=== PATIENT | female | born 1995 | race Caucasian/White ===

== ENCOUNTER 2016-03-30 12:20 | Emergency (ER) | payer MEDICAID | END 2016-03-30 13:10 | disposition left against medical advice (07) | DX: Z53.21 Procedure and treatment not carried out due to patient leaving prior to being seen by health care provider (principal) ==

== ENCOUNTER 2016-03-30 14:28 | Emergency (ER) | payer MEDICAID | END 2016-03-30 18:15 | disposition home or self-care (01) | DX: O26.891 Other specified pregnancy related conditions, first trimester (principal); R10.2 Pelvic and perineal pain; Z3A.01 Less than 8 weeks gestation of pregnancy ==

== ENCOUNTER 2016-04-19 07:59 | Emergency (ER) | payer MEDICAID | END 2016-04-19 09:46 | disposition home or self-care (01) | DX: R50.9 Fever, unspecified (principal); O21.0 Mild hyperemesis gravidarum; Z3A.08 8 weeks gestation of pregnancy; J45.909 Unspecified asthma, uncomplicated ==

== ENCOUNTER 2016-04-27 | Outpatient (CLI) | payer MEDICAID | END 2016-04-27 12:38 | disposition critical access hospital (66) | CPT/HCPCS: A0425; A0429 ==

== ENCOUNTER 2016-04-27 12:56 | Emergency (ER) | payer MEDICAID | END 2016-04-27 13:45 | disposition home or self-care (01) | DX: Z53.21 Procedure and treatment not carried out due to patient leaving prior to being seen by health care provider (principal); O99.89 Other specified diseases and conditions complicating pregnancy, childbirth and the puerperium; R10.9 Unspecified abdominal pain; Z3A.09 9 weeks gestation of pregnancy ==

== ENCOUNTER 2016-05-15 13:30 | Outpatient (CLI) | payer MEDICAID | END 2016-05-15 13:31 | disposition home or self-care (01) | DX: R10.0 Acute abdomen (principal) ==

== ENCOUNTER 2019-07-28 16:17 | Outpatient (CLI) | payer MEDICAID | END 2019-07-28 16:18 | disposition critical access hospital (66) | LOC: EMS 16:17 | PROVIDERS: ATTEND Surgery | DX: M54.9 Dorsalgia, unspecified (principal); W10.9XXA Fall (on) (from) unspecified stairs and steps, initial encounter | CPT/HCPCS: A0425; A0429; A0999 ==

== ENCOUNTER 2019-07-28 16:38 | Emergency (ER) | payer MEDICAID ==
[2019-07-28] MEDS ORDERED: HYDROcod/ACETAM 5/325 MG TABLET PO STA (16:43)
--- NOTE | 2019-07-28 16:45 | ED Physician Documentation ---
PD HPI BACK PAIN - Stated complaint Stated Complaint: FALL/NECK PAIN - History obtained from History obtained from: Patient (She was walking up carpeted steps in her home and slipped and fell backwards hitting her back and neck and also hurting her right knee. This was just prior to arrival. She denies loss of consciousness. She is brought in by ambulance in full C-spine precautions. She says she has no possibility of . No syncope or loss of consciousness. She has not been ambulatory since the accident.), EMS Review of Systems Ten Systems: 10 systems reviewed and negative Constitutional: reports: Reviewed and negative Throat: reports: Reviewed and negative Cardiac: reports: Reviewed and negative PD PAST MEDICAL HISTORY - Past Medical History Cardiovascular: None Respiratory: Asthma Endocrine/Autoimmune: None GI: None : None HEENT: None Psych: Depression, Anxiety Musculoskeletal: None - Past Surgical History Past Surgical History: Yes HEENT: Tonsil/Adenoidectomy - Present Medications Home Medications: Ambulatory Orders Medication Instructions Recorded Confirmed PARoxetine HCl [Paxil] 30 mg PO DAILY 12/02/15 03/05/16 Ondansetron Odt [Zofran Odt] 4 mg PO Q6H PRN 03/05/16 03/05/16 Sumatriptan Succinate [Imitrex] 50 mg PO DAILY PRN 03/05/16 03/05/16 hydrOXYzine HCL [Hydroxyzine HCl] 10 mg PO BID PRN 03/05/16 03/05/16 Pyridoxine HCl (Vitamin B6) 25 mg PO Q8H PRN #10 tablet 04/19/16 [Vitamin B-6] Hydrocodone/Acetaminophen 1 - 2 each PO Q6H PRN #14 tablet 07/28/19 [Hydrocodon-Acetaminophen 5-325] - Allergies Allergies/Adverse Reactions: Allergies Allergy/AdvReac Type Severity Reaction Status Date / Time latex Allergy Unknown Verified 07/28/19 16:53 Sulfa (Sulfonamide Allergy Unknown Verified 07/28/19 16:53 Antibiotics) - Social History Does the pt smoke?: No Smoking Status: Never smoker Does the pt drink ETOH?: No Does the pt have substance abuse?: No - Immunizations Immunizations are current?: Yes PD ED PE NORMAL - Vitals Vital signs reviewed: Yes - General General: Alert and oriented X 3, No acute distress - HEENT HEENT: PERRL, EOMI - Neck Neck: Other (Maintained in c-collar pending imaging, backboard removed during exam. She is very mild upper C-spine tenderness.) - Cardiac Cardiac: RRR, No murmur - Respiratory Respiratory: No respiratory distress, Clear bilaterally - Abdomen Abdomen: Non tender - Back Back: Other (Some diffuse tenderness of the lower T and upper L-spine) - Extremities Extremities: Other (Mild tenderness of the anterior medial right knee without effusion or limited range of motion. The patient has equal and normal Achilles and patellar reflexes bilaterally. Normal sensation in all areas of the legs. Patient denies saddle anesthesia. Normal strength in flexion-extension at the ankles, knees, and flexion of the hips.) - Neuro Neuro: Alert and oriented X 3, Normal speech Results - Vitals Vitals: Vital Signs - 24 hr 07/28/19 16:45 Temperature 37.1 C Heart Rate 79 Respiratory 20 Rate Blood Pressure 134/95 H O2 Saturation 98 Oxygen O2 Source Room air - Rads (name of study) CT C/T/L spine Radiology: EMP read contemporaneously (NAD) R knee 4v Radiology: EMP read contemporaneously (NAD) Departure - Departure Disposition: Home, Self Care Clinical Impression: Back strain Qualifiers: Encounter type: initial encounter Qualified Code(s): S39.012A - Strain of muscle, fascia and tendon of lower back, initial encounter Neck strain Qualifiers: Encounter type: initial encounter Qualified Code(s): S16.1XXA - Strain of muscle, fascia and tendon at neck level, initial encounter Condition: Good Record reviewed to determine appropriate education?: Yes Instructions: ED Sprain Strain Lumbar, ED Sprain Strain Neck Prescriptions: Hydrocodone/Acetaminophen [Hydrocodon-Acetaminophen 5-325] 1 - 2 each PO Q6H PRN #14 tablet PRN Reason: pain Comments: Call your doctor to arrange a follow-up appointment, make the next available appointment. In the interim, return anytime if worse or if new symptoms develop.
[2019-07-28 16:53] VITALS: BP 134/95
--- NOTE | 2019-07-28 17:19 | XRAY Report ---
Reason: knee inj Procedure Date: 07/28/2019 Accession Number: [id number] / [id number] Procedure: XR - Knee 4 View RT CPT Code: Final Report FULL RESULT: EXAM: RIGHT KNEE RADIOGRAPHY EXAM DATE: 07/28/2019 05:03 PM. CLINICAL HISTORY: Knee injury COMPARISON: None. TECHNIQUE: 4 views. FINDINGS: Bones: No acute fracture. No suspicious osseous lesion. Joints: No significant joint space narrowing. No dislocation. Other: None. IMPRESSION: No acute osseous abnormality. RAD[facility]
--- NOTE | 2019-07-28 17:56 | CT Report ---
Reason: neck/back inj Procedure Date: 07/28/2019 Accession Number: [id number] / [id number] Procedure: CT - THORACIC SPINE WO CPT Code: Final Report FULL RESULT: EXAM: CT THORACIC SPINE WITHOUT CONTRAST EXAM DATE: 07/28/2019 05:22 PM. CLINICAL HISTORY: Neck and back injury COMPARISONS: None. TECHNIQUE: Thin-section axial images were acquired of the thoracic spine from C7 to L1 without contrast. Post-processing: Coronal and sagittal reformats. Other: None. In accordance with CT protocol optimization, one or more of the following dose reduction techniques were utilized for this exam: automated exposure control, adjustment of mA and/or KV based on patient size, or use of iterative reconstructive technique. FINDINGS: Alignment: No evidence of dislocation. There is partial fusion of the T2 and T3 vertebral bodies, with mild focal left convex scoliosis at this level. There is no evidence of spondylolisthesis. Bones: No fracture or bone lesion. Disk Levels/Facets: C7-T1: Unremarkable. T1-T2: Unremarkable. T2-T3: Unremarkable. T3-T4: Unremarkable. T4-T5: Unremarkable. T5-T6: Unremarkable. T6-T7: Unremarkable. T7-T8: Unremarkable. T8-T9: Unremarkable. T9-T10: Unremarkable. T10-T11: Unremarkable. T11-T12: Unremarkable. T12-L1: Unremarkable. Musculature: Normal. No fatty atrophy. Other: The visualized lungs, mediastinum, and abdominal cavity are unremarkable. IMPRESSION: No evidence of thoracic spine fracture or dislocation. RAD[facility]
--- NOTE | 2019-07-28 17:57 | CT Report ---
Reason: neck/back inj Procedure Date: 07/28/2019 Accession Number: [id number] / [id number] Procedure: CT - LUMBAR SPINE WO CPT Code: Final Report FULL RESULT: EXAM: CT LUMBAR SPINE WITHOUT CONTRAST EXAM DATE: 07/28/2019 05:22 PM. CLINICAL HISTORY: Fall, back pain COMPARISONS: None. TECHNIQUE: Thin-section axial images were acquired of the lumbar spine from T12 to S1 without contrast. Post-processing: Coronal and sagittal reformats. Other: None. In accordance with CT protocol optimization, one or more of the following dose reduction techniques were utilized for this exam: automated exposure control, adjustment of mA and/or KV based on patient size, or use of iterative reconstructive technique. FINDINGS: Alignment: No scoliosis or spondylolisthesis. Bones: Five dsc-lqe-ntotmva lumbar vertebral bodies are present. No fractures or bone lesions. Disk Levels/Facets: T12-L1: Unremarkable. L1-L2: Unremarkable. L2-L3: Unremarkable. L3-L4: Unremarkable. L4-L5: Unremarkable. L5-S1: Unremarkable. Musculature: Normal. No fatty atrophy. Other: The visualized retroperitoneum demonstrates no significant abnormalities. IMPRESSION: Normal lumbar spine CT. RADIA
--- NOTE | 2019-07-28 17:58 | CT Report ---
Reason: neck/back inj Procedure Date: 07/28/2019 Accession Number: [id number] / [id number] Procedure: CT - CERVICAL SPINE WO CPT Code: Final Report FULL RESULT: EXAM: CT CERVICAL SPINE WITHOUT CONTRAST DATE: 07/28/2019 05:22 PM. HISTORY: Fell down stairs. Back pain. COMPARISONS: None. TECHNIQUE: Thin-section axial images were acquired of the cervical spine without contrast. Post-processing: Coronal and sagittal reformats. Other: None. In accordance with CT protocol optimization, one or more of the following dose reduction techniques were utilized for this exam: automated exposure control, adjustment of mA and/or KV based on patient size, or use of iterative reconstructive technique. FINDINGS: Alignment: No scoliosis or spondylolisthesis. Bones: No fracture or bone lesion. Interspace Levels/Facets: C1-C2: Unremarkable. C2-C3: Unremarkable. C3-C4: Unremarkable. C4-C5: Unremarkable. C5-C6: Unremarkable. C6-C7: Unremarkable. C7-T1: Unremarkable. Musculature: Normal. No fatty atrophy. Other: The paravertebral and prevertebral soft tissues are unremarkable. The lung apices are clear. IMPRESSION: Negative cervical spine. RADIA
== END 2019-07-28 18:22 | disposition home or self-care (01) ==
LOC: EDUNIT# → ED 16:38
DX: S39.012A Strain of muscle, fascia and tendon of lower back, initial encounter (principal); S16.1XXA Strain of muscle, fascia and tendon at neck level, initial encounter; M25.561 Pain in right knee; W10.8XXA Fall (on) (from) other stairs and steps, initial encounter; Y93.01 Activity, walking, marching and hiking; Y92.009 Unspecified place in unspecified non-institutional (private) residence as the place of occurrence of the external cause
CPT/HCPCS: 72125; 72128; 72131; 73564; 99283; 99284; A9270

== ENCOUNTER 2019-08-03 15:18 | Outpatient (CLI) | payer MEDICAID | END 2019-08-03 15:19 | disposition home or self-care (01) | LOC: COV 15:18 | PROVIDERS: ATTEND Physician Assistant | DX: Z01.812 Encounter for preprocedural laboratory examination (principal); R10.13 Epigastric pain; R11.2 Nausea with vomiting, unspecified | CPT/HCPCS: 81599 ==

== ENCOUNTER 2019-08-18 17:45 | Emergency (ER) | payer MEDICAID ==
[2019-08-18 18:08] VITALS: BP 132/84
[2019-08-18] MEDS ORDERED: MAGNESIUM CITRATE 296 ML BOTTLE PO STA (18:57)
--- NOTE | 2019-08-18 19:02 | ED Physician Documentation ---
History of Present Illness - Stated complaint Stated Complaint: CONSTIPATION - Chief complaint Chief Complaint: Abd Pain - History obtained from History obtained from: Patient - History of Present Illness Timing: How many days ago (5) Pain level max: 0 Pain level now: 0 - Additonal information Additional information: 24-year-old female presents to the emergency department with constipation for 5 days. She states she could not afford any laxatives so came here instead. No nausea. No vomiting. No fevers. No abdominal pain. 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 : None HEENT: None Psych: Depression, Anxiety Musculoskeletal: None - Past Surgical History Past Surgical History: Yes HEENT: Tonsil/Adenoidectomy - Present Medications Home Medications: Ambulatory Orders Medication Instructions Recorded Confirmed PARoxetine HCl [Paxil] 30 mg PO DAILY 12/02/15 03/05/16 Ondansetron Odt [Zofran Odt] 4 mg PO Q6H PRN 03/05/16 03/05/16 Sumatriptan Succinate [Imitrex] 50 mg PO DAILY PRN 03/05/16 03/05/16 hydrOXYzine HCL [Hydroxyzine HCl] 10 mg PO BID PRN 03/05/16 03/05/16 Pyridoxine HCl (Vitamin B6) 25 mg PO Q8H PRN #10 tablet 04/19/16 [Vitamin B-6] Hydrocodone/Acetaminophen 1 - 2 each PO Q6H PRN #14 tablet 07/28/19 [Hydrocodon-Acetaminophen 5-325] Polyethylene Glycol 3350 [Miralax] 17 gm PO DAILY PRN #1 bottle 08/18/19 - Allergies Allergies/Adverse Reactions: Allergies Allergy/AdvReac Type Severity Reaction Status Date / Time latex Allergy Unknown Verified 08/18/19 18:05 Sulfa (Sulfonamide Allergy Unknown Verified 08/18/19 18:05 Antibiotics) - Social History Does the pt smoke?: Yes Smoking Status: Current every day smoker Does the pt drink ETOH?: Yes Does the pt have substance abuse?: No - Immunizations Immunizations are current?: Yes - POLST Patient has POLST: No PD ED PE NORMAL - Vitals Vital signs reviewed: Yes - General General: Alert and oriented X 3, No acute distress - HEENT HEENT: Moist mucous membranes - Neck Neck: Supple, no meningeal sign - Cardiac Cardiac: RRR - Respiratory Respiratory: No respiratory distress, Clear bilaterally - Abdomen Abdomen: Soft, Non tender, Non distended - Derm Derm: Warm and dry - Neuro Neuro: Alert and oriented X 3 Results - Vitals Vitals: Vital Signs - 24 hr 08/18/19 18:05 Temperature 36.5 C Heart Rate 112 H Respiratory 14 Rate Blood Pressure 132/84 H O2 Saturation 97 Oxygen O2 Source Room air PD MEDICAL DECISION MAKING - ED course Complexity details: considered differential, d/w patient ED course: Patient with constipation. Given magnesium citrate. We will have her follow-up with her doctor for further care. No evidence of bowel obstruction. No fever. No vomiting. Patient counseled regarding signs and symptoms for which I believe and urgent re-evaluation would be necessary. Patient with good understanding of and agreement to plan and is comfortable going home at this time This document was made in part using voice recognition software. While efforts are made to proofread this document, sound alike and grammatical errors may occur. Departure - Departure Disposition: 01 Home, Self Care Clinical Impression: Constipation Qualifiers: Constipation type: unspecified constipation type Qualified Code(s): K59.00 - Constipation, unspecified Condition: Good Instructions: ED Constipation Follow-Up: ROSITA LITTLE DO [Primary Care Provider] - Within 1 week Prescriptions: Polyethylene Glycol 3350 [Miralax] 17 gm PO DAILY PRN #1 bottle PRN Reason: Constipation Comments: Drink plenty of water. Follow-up with your doctor for further care. Discharge Date/Time: 08/18/19 19:15
== END 2019-08-18 19:15 | disposition home or self-care (01) ==
LOC: ED 17:45
DX: K59.00 Constipation, unspecified (principal); F17.200 Nicotine dependence, unspecified, uncomplicated
CPT/HCPCS: 99282; 99284; A9270

== ENCOUNTER 2019-10-05 18:08 | Emergency (ER) | payer MEDICAID ==
--- NOTE | 2019-10-05 19:44 | ED Physician Documentation ---
History of Present Illness - Stated complaint Stated Complaint: RT SHOULDER/BACK PAIN - Chief complaint Chief Complaint: Ext Problem - History obtained from History obtained from: Patient, Family - History of Present Illness Timing: How many weeks ago (2) - Additonal information Additional information: 24-year-old female comes to the emergency department with chief complaint of right posterior shoulder back pain. Pain began about 2 weeks ago. Patient denies any falls or trauma. She reports that her aunt has been massaging the area and feels like the trapezius is swollen or tense. Pain is worse with movement. Does not increase with respirations. Patient denies any cough or fever. no dyspnea. She has full range of motion of the shoulder in all planes. For pain control she has taken 800 mg of ibuprofen and naproxen plus Tylenol. She is also used some leftover Vicodin as well as Flexeril. The only medication that helped with her pain was the Vicodin. Patient has an appointment scheduled with her primary care provider on Wednesday to address this issue. Review of Systems Constitutional: denies: Fever, Chills Cardiac: denies: Chest pain / pressure, Palpitations Respiratory: reports: Dyspnea, Cough GI: reports: Abdominal Pain. denies: Abdominal Swelling, Nausea, Vomiting Skin: denies: Rash, Lesions Musculoskeletal: reports: Back pain. 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 : None HEENT: None Psych: Depression, Anxiety Musculoskeletal: None - Past Surgical History Past Surgical History: Yes HEENT: Tonsil/Adenoidectomy - Present Medications Home Medications: Ambulatory Orders Medication Instructions Recorded Confirmed PARoxetine HCl [Paxil] 30 mg PO DAILY 12/02/15 03/05/16 Ondansetron Odt [Zofran Odt] 4 mg PO Q6H PRN 03/05/16 03/05/16 Sumatriptan Succinate [Imitrex] 50 mg PO DAILY PRN 03/05/16 03/05/16 hydrOXYzine HCL [Hydroxyzine HCl] 10 mg PO BID PRN 03/05/16 03/05/16 Pyridoxine HCl (Vitamin B6) 25 mg PO Q8H PRN #10 tablet 04/19/16 [Vitamin B-6] Hydrocodone/Acetaminophen 1 - 2 each PO Q6H PRN #14 tablet 07/28/19 [Hydrocodon-Acetaminophen 5-325] Polyethylene Glycol 3350 [Miralax] 17 gm PO DAILY PRN #1 bottle 08/18/19 methocarbamoL [Robaxin] 500 mg PO BID PRN #15 tablet 10/05/19 - Allergies Allergies/Adverse Reactions: Allergies Allergy/AdvReac Type Severity Reaction Status Date / Time latex Allergy Unknown Verified 10/05/19 18:25 Sulfa (Sulfonamide Allergy Unknown Verified 10/05/19 18:25 Antibiotics) - Social History Does the pt smoke?: Yes Smoking Status: Current every day smoker Does the pt drink ETOH?: Yes Does the pt have substance abuse?: No - Immunizations Immunizations are current?: Yes - POLST Patient has POLST: No PD ED PE NORMAL - General General: Alert and oriented X 3, No acute distress - Neck Neck: Supple, no meningeal sign, No bony TTP, No adenopathy - Cardiac Cardiac: RRR, No murmur - Respiratory Respiratory: No respiratory distress, Clear bilaterally - Back Back: No CVA TTP, No spinal TTP, Other (Full range of motion of both shoulders in all planes. Negative for impingement. Mild tenderness noted with deep palpation of the right trapezius medial to the scapula. Subtle swelling is noted but no erythema.) - Derm Derm: Normal color, Warm and dry, No rash - Extremities Extremities: No deformity Results - Vitals Vitals: Vital Signs - 24 hr 10/05/19 10/05/19 18:20 19:38 Temperature 36.4 C L Heart Rate 96 Respiratory 16 16 Rate Blood Pressure 124/76 O2 Saturation 99 Oxygen O2 Source Room air PD MEDICAL DECISION MAKING - ED course Complexity details: reviewed results, d/w patient, d/w family ED course: 24 year-old female here with 2 weeks of left posterior back trapezius pain. No history of falls or trauma. will defer imaging - On exam she has mild swelling and tenderness in the body of the trapezius. She has no fevers or erythema. My suspicion for infection or localized abscess is extremely low. The exam of her shoulder is normal with no findings of impingement. - We discussed proper [id number] NSAID and Tylenol use. She appears to be overusing at this time. I will recommend a short course of a muscle relaxer Robaxin. She is good to see her primary care doctor on Wednesday. I have advised that she should be referred for physical therapy. - Departure - Departure Disposition: Home, Self Care Clinical Impression: Strain of left trapezius muscle Qualifiers: Encounter type: initial encounter Qualified Code(s): S46.812A - Strain of other muscles, fascia and tendons at shoulder and upper arm level, left arm, initial encounter Condition: Stable Instructions: ED Spasm Back No Trauma Follow-Up: ROSITA LITTLE DO [Primary Care Provider] - Prescriptions: methocarbamoL [Robaxin] 500 mg PO BID PRN #15 tablet PRN Reason: Spasms Comments: I think you have a strained trapezius muscle. Please place a warm compress on it 2-3 times a day to help with inflammation. I have prescribed a little bit of Robaxin to be used as a muscle relaxer. Do not drive if taking this medication. Please avoid overuse of [id number] pain medications in combination such as ibuprofen and naproxen. You are at risk of damaging your kidneys by doing this. Please return to the emergency department if your pain is worsening, you have fevers, cannot breathe normally or have any concerns of infection
[2019-10-05 19:55] VITALS: BP 123/78
== END 2019-10-05 19:57 | disposition home or self-care (01) ==
LOC: ED 18:08
DX: S46.812A Strain of other muscles, fascia and tendons at shoulder and upper arm level, left arm, initial encounter (principal); X58.XXXA Exposure to other specified factors, initial encounter; F17.200 Nicotine dependence, unspecified, uncomplicated
CPT/HCPCS: 99282; 99283

== ENCOUNTER 2019-10-07 19:42 | Outpatient (CLI) | payer MEDICAID | END 2019-10-07 23:59 | disposition short-term general hospital (02) | LOC: EMS 19:42 | PROVIDERS: ATTEND Surgery | DX: R05 Cough (principal); R06.9 Unspecified abnormalities of breathing | CPT/HCPCS: A0425; A0429 ==

== ENCOUNTER 2019-10-24 19:08 | Emergency (ER) | payer MEDICAID ==
[2019-10-24 19:38] LABS: BILIRUBIN,URINE NEGATIVE (NEGATIVE); GLUCOSE, URINE (UA) NEGATIVE (NEGATIVE); KETONES,URINE (UA) NEGATIVE (NEGATIVE); LEUKOCYTE ESTERASE, URINE NEGATIVE (NEGATIVE); NITRITE,URINE NEGATIVE (NEGATIVE); OCCULT BLOOD,URINE NEGATIVE (NEGATIVE); PROTEIN,URINE NEGATIVE (NEGATIVE); UROBILINOGEN,URINE 0.2 (NORMAL) E.U./dL (NORMAL)
--- NOTE | 2019-10-24 19:42 | ED Physician Documentation ---
History of Present Illness - Stated complaint Stated Complaint: PAIN BACK - Chief complaint Chief Complaint: Back Pain - History obtained from History obtained from: Patient - History of Present Illness Timing: How many days ago (2) - Additonal information Additional information: 24-year-old female presents the emergency department for evaluation of left low sided back pain as well as new onset urinary urgency and frequency. She was seen in this ER yesterday for left sided back pain without any sciatica component. She has been taking the medications as prescribed since discharge but does not feel like the pain has improved. She denies any saddle anesthesia or fevers. However today she is gone to the bathroom approximately 12 times. Each time she does not feel like she fully empties her bladder Past medical history is most significant for anxiety/depression as well as IBS that is complicated by recurrent constipation for which she takes MiraLAX and lactulose She has had no falls or trauma recently. In the room she appears very well and alert. She has a normal non-antalgic gait Review of Systems Constitutional: denies: Fever, Chills Cardiac: denies: Chest pain / pressure, Palpitations Respiratory: denies: Dyspnea GI: denies: Abdominal Pain, Nausea, Vomiting : reports: Frequency, Hesitancy. denies: Dysuria Skin: denies: Rash, Lesions Musculoskeletal: reports: Back pain. 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 : None HEENT: None Psych: Depression, Anxiety Musculoskeletal: None - Past Surgical History Past Surgical History: Yes HEENT: Tonsil/Adenoidectomy - Present Medications Home Medications: Ambulatory Orders Medication Instructions Recorded Confirmed Ondansetron Odt [Zofran Odt] 4 mg PO Q6H PRN 03/05/16 10/22/19 Dicyclomine [Bentyl] 10/22/19 Lactulose 10/22/19 Lamotrigine [Lamictal (Green)] 10/22/19 OLANZapine [Zyprexa] 10/22/19 Pantoprazole [Protonix] 10/22/19 busPIRone [Buspar] 10/22/19 cloNIDine [Clonidine] 10/22/19 Cyclobenzaprine [Flexeril] 10 mg PO TID PRN #6 tablet 10/23/19 Cephalexin [Keflex] 500 mg PO BID #10 capsule 10/24/19 Naproxen Sodium [Naprelan] 375 mg PO BID PRN #10 tbmp.24hr 10/24/19 - Allergies Allergies/Adverse Reactions: Allergies Allergy/AdvReac Type Severity Reaction Status Date / Time latex Allergy Unknown Verified 10/24/19 19:14 Sulfa (Sulfonamide Allergy Unknown Verified 10/24/19 19:14 Antibiotics) - Social History Does the pt smoke?: Yes Smoking Status: Current every day smoker Does the pt drink ETOH?: Yes Does the pt have substance abuse?: No - Immunizations Immunizations are current?: Yes - POLST Patient has POLST: No PD ED PE NORMAL - General General: Alert and oriented X 3, No acute distress, Well developed/nourished - HEENT HEENT: PERRL, EOMI - Cardiac Cardiac: RRR, No murmur - Respiratory Respiratory: No respiratory distress - Abdomen Abdomen: Normal bowel sounds, Soft, Non tender - Back Back: No CVA TTP, No spinal TTP, Other (Full range of motion of lower lumbar spine. Mild left paraspinous tenderness. No midline spinous process tenderness. No crepitus no step-off. Normal gait. Motor strength 5 of 5 bilateral lower extremities. 2+ patellar reflexes bilaterally) - Derm Derm: Normal color, Warm and dry - Extremities Extremities: No deformity, No tenderness to palpate, Normal ROM s pain - Neuro Neuro: Alert and oriented X 3, numerologist 2-12 intact, No motor deficit Eye Opening: Spontaneous Motor: Obeys Commands Verbal: Oriented GCS Score: 15 - Psych Psych: Normal mood Results - Vitals Vitals: Vital Signs - 24 hr 10/24/19 19:14 Temperature 36.8 C Heart Rate 100 Respiratory 16 Rate Blood Pressure 130/83 H O2 Saturation 98 Oxygen O2 Source Room air - Labs Labs: Laboratory Tests 10/24/19 10/24/19 19:19 19:19 Urine Color YELLOW Urine Clarity CLEAR Urine pH 6.0 Ur Specific [place] <=1.005 <=1.005 Urine Protein NEGATIVE Urine Glucose (UA) NEGATIVE Urine Ketones NEGATIVE Urine Occult Blood NEGATIVE Urine Nitrite NEGATIVE Urine Bilirubin NEGATIVE Urine Urobilinogen 0.2 (NORMAL) Ur Leukocyte Esterase NEGATIVE Ur Microscopic Review NOT INDICATED Urine Culture Comments NOT INDICATED Urine HCG, Qual NEGATIVE PD MEDICAL DECISION MAKING - ED course Complexity details: reviewed results, d/w patient, d/w family ED course: 24-year-old female presents to the emergency department with chief complaint of left low back pain and increasing urinary urgency and frequency. - She has no back pain red flags. No fevers or saddle anesthesia. In fact her back exam was relatively benign she has a normal gait and I did not elicit any midline spinous process tenderness. - The newer onset urinary urgency and frequency is most worrisome for urinary tract infection. However her urine UA is relatively unremarkable. No LE, no nitrates no bacteria. The urine does appear dilute which may minimize her ability to adequately interpret the urine. However given her symptoms I will plan to discharge her with a prescription for Keflex to be taken twice a day for 5 days. We will also recommend NSAID medication such as naproxen. Though she does not have a history of recurrent UTI or interstitial cystitis and anti- inflammatory medication may improve her symptoms. No fevers flank pain or chills my suspicion for Rony is exceedingly low. Emergent return precautions discussed Departure - Departure Disposition: 01 Home, Self Care Clinical Impression: Urinary frequency Low back pain Qualifiers: Chronicity: acute Back pain laterality: left Sciatica presence: without sciatica Qualified Code(s): M54.5 - Low back pain Condition: Stable Instructions: ED UTI Cystitis Female Follow-Up: ROSITA LITTLE DO [Primary Care Provider] - Prescriptions: Cephalexin [Keflex] 500 mg PO BID #10 capsule Naproxen Sodium [Naprelan] 375 mg PO BID PRN #10 tbmp.24hr PRN Reason: Pain Comments: The increased urinary frequency and urgency is often a sign of a urinary tract infection. However your urine looks normal today but this does not mean that you do not have a very early infection causing your symptoms. I have given you your first dose of Keflex here in the emergency department and have prescribed a 5-day course of an antibiotic for you to take twice a day. If this is a simple urinary tract infection I would expect your symptoms to be improving over the next 48 hours. If not improving, you have fevers flank pain or uncontrolled vomiting please return to the emergency department
[2019-10-24 19:45] LABS: CLARITY,URINE CLEAR (CLEAR)
[2019-10-24 19:53] LABS: HCG UR QUAL NEGATIVE
[2019-10-24] MEDS ORDERED: cephALEXin 250 MG CAPSULE PO STA (20:15)
[2019-10-24 21:12] VITALS: BP 127/78
== END 2019-10-24 21:00 | disposition home or self-care (01) ==
LOC: ED 19:08
DX: R35.0 Frequency of micturition (principal); R39.15 Urgency of urination; M54.5 Low back pain; F17.200 Nicotine dependence, unspecified, uncomplicated
CPT/HCPCS: 81003; 81025; 99283; 99284; A9270; 81001; 87086

== ENCOUNTER 2019-12-05 18:42 | Outpatient (CLI) | payer MEDICAID | END 2019-12-05 18:43 | disposition critical access hospital (66) | LOC: EMS 18:42 | PROVIDERS: ATTEND Surgery | DX: R55 Syncope and collapse (principal); R42 Dizziness and giddiness; S09.90XA Unspecified injury of head, initial encounter; W18.39XA Other fall on same level, initial encounter; Y92.511 Restaurant or cafe as the place of occurrence of the external cause | CPT/HCPCS: A0425; A0427 ==

== ENCOUNTER 2019-12-05 18:59 | Emergency (ER) | payer MEDICAID ==
--- NOTE | 2019-12-05 19:07 | ED Physician Documentation ---
PD HPI SYNCOPE - Stated complaint Stated Complaint: SYNCOPE - Chief complaint Chief Complaint: General - History obtained from History obtained from: Patient - History of Present Illness Witnessed: Unwitnessed (She was at work and stood up after going to the bathroom and felt lightheaded and then awoke on the floor. Coworkers heard her fall and came in to find her promptly and she was awake within several seconds. She did appear pale. EMS was called and noted her initial blood pressure little bit low.) Timing - onset: Today Duration: Seconds Preceding symptoms: Nausea / vomiting (The patient states she has chronic diarrhea from 1 of her medications but in the last several days has noticed a reddish-brown coloring to it with more watery component than usual. She has had nausea as well. She did have a feeling of general weakness. No abdominal pain.), Light headed, Generalized weakness Associated symptoms: No: Seizure, Incontinant of urine Contributing factors: Decreased PO intake (She has had nausea over the last several days with some decreased oral intake. She is also had some increased diarrhea with some reddish color over the last few days.). No: Recent med change Injury occurred: Head injury (contusion forehead but no headache, confusion, altered mentation once awakened.) Review of Systems Constitutional: denies: Fever, Chills Nose: denies: Rhinorrhea / runny nose, Congestion Throat: denies: Sore throat Respiratory: denies: Cough GI: reports: Nausea, Diarrhea (somewhat chronic but with increase the past 4-5 days, improving toward baseline softness today.). denies: Abdominal Pain, Abdominal Swelling, Vomiting, Constipation : denies: Dysuria Skin: denies: Abrasion (s), Laceration (s) Neurologic: reports: Generalized weakness, Syncope. 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 : None HEENT: None Psych: Depression, Anxiety Musculoskeletal: None - Past Surgical History Past Surgical History: Yes HEENT: Tonsil/Adenoidectomy - Present Medications Home Medications: Ambulatory Orders Medication Instructions Recorded Confirmed Ondansetron Odt [Zofran Odt] 4 mg PO Q6H PRN 12/15/16 08/02/20 Dicyclomine [Bentyl] 10/22/19 Lactulose 10/22/19 Lamotrigine [Lamictal (Green)] 10/22/19 OLANZapine [Zyprexa] 10/22/19 Pantoprazole [Protonix] 10/22/19 busPIRone [Buspar] 10/22/19 cloNIDine [Clonidine] 10/22/19 Cyclobenzaprine [Flexeril] 10 mg PO TID PRN #6 tablet 10/23/19 Cephalexin [Keflex] 500 mg PO BID #10 capsule 10/24/19 Naproxen Sodium [Naprelan] 375 mg PO BID PRN #10 tbmp.24hr 10/24/19 metroNIDAZOLE [Flagyl] 500 mg PO BID #10 tablet 12/05/19 - Allergies Allergies/Adverse Reactions: Allergies Allergy/AdvReac Type Severity Reaction Status Date / Time latex Allergy Unknown Verified 12/05/19 19:05 Sulfa (Sulfonamide Allergy Unknown Verified 12/05/19 19:05 Antibiotics) - Social History Does the pt smoke?: Yes Smoking Status: Current every day smoker Does the pt drink ETOH?: Yes Does the pt have substance abuse?: No - Immunizations Immunizations are current?: Yes - POLST Patient has POLST: No PD ED PE NORMAL - Vitals Vital signs reviewed: Yes - General General: Alert and oriented X 3, No acute distress, Well developed/nourished - HEENT HEENT: Pharynx benign, Other (forehead contusion with minimal tenderness. ) - Neck Neck: Supple, no meningeal sign, No adenopathy - Cardiac Cardiac: RRR, No murmur - Respiratory Respiratory: Clear bilaterally - Abdomen Abdomen: Normal bowel sounds, Soft, Non tender, Non distended - Rectal Rectal: Deferred - Back Back: No CVA TTP - Derm Derm: Normal color, Warm and dry - Extremities Extremities: No edema, No calf tenderness / cord - Neuro Neuro: Alert and oriented X 3, No motor deficit, No sensory deficit, Normal speech Eye Opening: Spontaneous Motor: Obeys Commands Verbal: Oriented GCS Score: 15 - Psych Psych: Normal mood, Normal affect Results - Vitals Vitals: Vital Signs - 24 hr 12/05/19 12/05/19 12/05/19 19:01 19:22 20:41 Temperature 36.6 C 37.1 C Heart Rate 84 90 Respiratory 100 H 16 18 Rate Blood Pressure 137/97 H 138/85 H O2 Saturation 98 12/05/19 20:42 Temperature Heart Rate Respiratory 16 Rate Blood Pressure O2 Saturation Oxygen O2 Source Room air - Labs Labs: Laboratory Tests 12/05/19 12/05/19 12/05/19 19:23 19:23 19:33 WBC 9.4 RBC 4.93 Hgb 13.0 Hct 40.6 MCV 82.4 MCH 26.4 L MCHC 32.0 RDW 13.3 Plt Count 234 MPV 11.2 H Neut # (Auto) 6.2 Lymph # (Auto) 2.4 Lake # (Auto) 0.8 Eos # (Auto) 0.0 Baso # (Auto) 0.1 Absolute Nucleated RBC 0.00 Nucleated RBC % 0.0 Sodium Potassium Chloride Carbon Dioxide Anion Gap BUN Creatinine Estimated GFR (MDRD) Glucose Calcium Total Bilirubin AST ALT Alkaline Phosphatase Total Protein Albumin Globulin Albumin/Globulin Ratio Lipase Urine Color YELLOW Urine Clarity CLEAR Urine pH 5.5 Ur Specific [place] 1.020 1.020 Urine Protein NEGATIVE Urine Glucose (UA) NEGATIVE Urine Ketones NEGATIVE Urine Occult Blood NEGATIVE Urine Nitrite NEGATIVE Urine Bilirubin NEGATIVE Urine Urobilinogen 0.2 (NORMAL) Ur Leukocyte Esterase NEGATIVE Ur Microscopic Review NOT INDICATED Urine Culture Comments NOT INDICATED Urine HCG, Qual NEGATIVE 12/05/19 19:33 WBC RBC Hgb Hct MCV MCH MCHC RDW Plt Count MPV Neut # (Auto) Lymph # (Auto) [place] # (Auto) Eos # (Auto) Baso # (Auto) Absolute Nucleated RBC Nucleated RBC % Sodium 139 Potassium 4.0 Chloride 108 Carbon Dioxide 21 Anion Gap 10.0 BUN 11 Creatinine 0.6 Estimated GFR (MDRD) 122 Glucose 93 Calcium 8.7 Total Bilirubin 0.5 AST 19 ALT 24 Alkaline Phosphatase 96 Total Protein 6.7 Albumin 4.2 Globulin 2.5 Albumin/Globulin Ratio 1.7 Lipase 20 L Urine Color Urine Clarity Urine pH Ur Specific [place] Urine Protein Urine Glucose (UA) Urine Ketones Urine Occult Blood Urine Nitrite Urine Bilirubin Urine Urobilinogen Ur Leukocyte Esterase Ur Microscopic Review Urine Culture Comments Urine HCG, Qual PD MEDICAL DECISION MAKING - ED course Complexity details: reviewed results (She does report some reddish to dark stools for several days. Her blood count is normal. She does typically have soft stool due to her medication from constipation. She does not have pain fever or white count to suggest obvious colitis but consider infectious colitis. Doubt c.diff.), considered differential (Seems postural syncope after going to the bathroom brought on by recent decreased oral intake with nausea and incr eased fluid loss from increased diarrhea over baseline.), d/w patient Departure - Departure Disposition: 01 Home, Self Care Clinical Impression: Bloody diarrhea Episode of syncope Qualifiers: Syncope type: unspecified Qualified Code(s): R55 - Syncope and collapse Condition: Stable Record reviewed to determine appropriate education?: Yes Instructions: ED Syncope Vasovagal Follow-Up: Maxwell Doe SR, MD [Primary Care Provider] - Prescriptions: metroNIDAZOLE [Flagyl] 500 mg PO BID #10 tablet Comments: Off work tomorrow and then resume work on . Nausea medicine if needed. Stay well-hydrated. If your blood in the diarrhea does not improve in the next day or so, then add the antibiotic as directed and see if that helps. It may be some infectious component to the diarrhea that is causing some bleeding. You could add some probiotics as well. Your blood count and EKG and heart rhythm are normal here. Recheck if persistently lightheaded or weakness continues. Forms: Activity restrictions
[2019-12-05] MEDS ORDERED: SODIUM CHLORIDE 0.9% 1,000 ML IV STA (19:20)
[2019-12-05] MEDS ORDERED: ONDANSETRON 4 MG/2 ML VIAL IVP STA (19:20)
[2019-12-05 19:33] LABS: BILIRUBIN,URINE NEGATIVE (NEGATIVE); GLUCOSE, URINE (UA) NEGATIVE (NEGATIVE); KETONES,URINE (UA) NEGATIVE (NEGATIVE); LEUKOCYTE ESTERASE, URINE NEGATIVE (NEGATIVE); NITRITE,URINE NEGATIVE (NEGATIVE); OCCULT BLOOD,URINE NEGATIVE (NEGATIVE); PH,URINE 5.5 PH (5.0-7.5); PROTEIN,URINE NEGATIVE (NEGATIVE); UROBILINOGEN,URINE 0.2 (NORMAL) E.U./dL (NORMAL)
[2019-12-05 19:35] LABS: CLARITY,URINE CLEAR (CLEAR)
[2019-12-05 19:39] LABS: BASOPHILS # (AUTO) 0.1 10^3/uL (0.0-0.1); BASOPHILS % (AUTO) 0.5 %; LYMPHOCYTES # (AUTO) 2.4 10^3/uL (1.5-3.5); LYMPHOCYTES % (AUTO) 25.3 %; MEAN CORPUSCULAR HEMOGLOBIN 26.4 pg (27.0-31.0); MEAN CORPUSCULAR VOLUME 82.4 fL (81.0-99.0); MEAN PLATELET VOLUME 11.2 fL (7.9-10.8); MONOCYTES # (AUTO) 0.8 10^3/uL (0.0-1.0); NEUTROPHILS # (AUTO) 6.2 10^3/uL (1.5-6.6); NEUTROPHILS % (AUTO) 65.7 %; PLT - PLATELET COUNT 234 10^3/uL (130-450); RED BLOOD COUNT 4.93 10^6/uL (4.20-5.40); RED CELL DISTRIBUTION WIDTH 13.3 % (12.0-15.0); WHITE BLOOD COUNT 9.4 x10^3/uL (4.8-10.8)
[2019-12-05 19:52] LABS: ALBUMIN 4.2 g/dL (3.2-5.5); ALBUMIN/GLOBULIN RATIO 1.7 (1.0-2.2); BILIRUBIN,TOTAL 0.5 mg/dL (0.2-1.0); CALCIUM 8.7 mg/dL (8.5-10.3); CREATININE 0.6 mg/dL (0.4-1.0); TOTAL PROTEIN 6.7 g/dL (6.7-8.2)
[2019-12-05 20:35] LABS: HCG UR QUAL NEGATIVE
[2019-12-05 20:49] VITALS: BP 138/85
== END 2019-12-05 20:50 | disposition home or self-care (01) ==
LOC: EDUNIT# → ED 18:59
DX: K92.1 Melena (principal); R55 Syncope and collapse; F17.200 Nicotine dependence, unspecified, uncomplicated
CPT/HCPCS: 36415; 80053; 81001; 81003; 81025; 83690; 85025; 87086; 93005; 96361; 96374; 99284

== ENCOUNTER 2019-12-06 23:04 | Outpatient (CLI) | payer MEDICAID | END 2019-12-06 23:05 | disposition critical access hospital (66) | LOC: EMS 23:04 | PROVIDERS: ATTEND Surgery | DX: R45.851 Suicidal ideations (principal) | CPT/HCPCS: A0425; A0429; A0999 ==

== ENCOUNTER 2019-12-06 23:21 | Emergency (ER) | payer MEDICAID ==
[2019-12-07 00:56] LABS: MUDS CUTOFF CONCENTRATIONS CUTOFF CONC BELOW:
[2019-12-07 01:00] LABS: BILIRUBIN,URINE NEGATIVE (NEGATIVE); GLUCOSE, URINE (UA) NEGATIVE (NEGATIVE); KETONES,URINE (UA) NEGATIVE (NEGATIVE); LEUKOCYTE ESTERASE, URINE NEGATIVE (NEGATIVE); NITRITE,URINE NEGATIVE (NEGATIVE); OCCULT BLOOD,URINE NEGATIVE (NEGATIVE); PH,URINE 6.5 PH (5.0-7.5); PROTEIN,URINE NEGATIVE (NEGATIVE); UROBILINOGEN,URINE 0.2 (NORMAL) E.U./dL (NORMAL)
[2019-12-07 01:04] LABS: CLARITY,URINE CLEAR (CLEAR)
[2019-12-07 01:10] LABS: AMPHETAMINE SCREEN,URINE NEGATIVE (NEGATIVE); BENZODIAZEPINES SCREEN, URINE NEGATIVE (NEGATIVE); COCAINE SCREEN URINE NEGATIVE (NEGATIVE); METHADONE SCREEN, URINE NEGATIVE (NEGATIVE); METHAMPHETAMINES SCREEN, URINE NEGATIVE (NEGATIVE); OPIATE SCREEN, URINE NEGATIVE (NEGATIVE); OXYCODONE SCREEN, URINE NEGATIVE (NEGATIVE); PROPOXYPHENE SCREEN, URINE NEGATIVE (NEGATIVE); TRICYCLIC ANTIDEPRESSANT,URINE POSITIVE (NEGATIVE)
[2019-12-07 01:16] LABS: BASOPHILS # (AUTO) 0.1 10^3/uL (0.0-0.1); BASOPHILS % (AUTO) 0.5 %; HGB - HEMOGLOBIN 13.2 g/dL (12.0-16.0); LYMPHOCYTES # (AUTO) 3.6 10^3/uL (1.5-3.5); LYMPHOCYTES % (AUTO) 26.8 %; MEAN CORPUSCULAR HEMOGLOBIN 26.2 pg (27.0-31.0); MEAN CORPUSCULAR HGB CONC 32.7 g/dL (32.0-36.0); MEAN CORPUSCULAR VOLUME 80.3 fL (81.0-99.0); MEAN PLATELET VOLUME 11.3 fL (7.9-10.8); MONOCYTES # (AUTO) 1.1 10^3/uL (0.0-1.0); MONOCYTES % (AUTO) 8.2 %; NEUTROPHILS # (AUTO) 8.6 10^3/uL (1.5-6.6); PLT - PLATELET COUNT 264 10^3/uL (130-450); RED BLOOD COUNT 5.03 10^6/uL (4.20-5.40); RED CELL DISTRIBUTION WIDTH 13.2 % (12.0-15.0); WHITE BLOOD COUNT 13.5 x10^3/uL (4.8-10.8)
[2019-12-07 01:31] LABS: ACETAMINOPHEN < 10 ug/mL (10-30); ALBUMIN 4.3 g/dL (3.2-5.5); ALBUMIN/GLOBULIN RATIO 1.5 (1.0-2.2); ALKALINE PHOSPHATASE 96 IU/L (42-121); ALT ALANINE AMINOTRANSFERASE 23 IU/L (10-60); AST ASPARTATE AMINOTRANSFERASE 17 IU/L (10-42); BILIRUBIN,TOTAL 0.4 mg/dL (0.2-1.0); BUN - BLOOD UREA NITROGEN 15 mg/dL (6-20); CALCIUM 9.8 mg/dL (8.5-10.3); CARBON DIOXIDE - CO2 23 mmol/L (21-32); CHLORIDE 106 mmol/L (101-111); CREATININE 0.7 mg/dL (0.4-1.0); GLUCOSE 97 mg/dL (70-100); LIPASE 28 U/L (22-51); SALICYLATE < 6.0 mg/dL; SODIUM 137 mmol/L (135-145); TOTAL PROTEIN 7.2 g/dL (6.7-8.2)
--- NOTE | 2019-12-07 05:13 | ED Physician Documentation ---
PD HPI MHE - Stated complaint Stated Complaint: SI - Chief complaint Chief Complaint: MHE - History obtained from History obtained from: Patient, EMS - History of Present Illness Primary symptom: Suicidal ideation Timing - onset: Today Contributing factors: Family Similar symptoms before: Diagnosis (depression with SI) Recently seen: Emergency Dept - Additional information Additional information: 24-year-old female who was seen in the emergency department yesterday for bloody diarrhea has had some improvement in her diarrhea. This evening she was at home and she went to go dye her hair in the bathroom. She had permission from her aunt to do this and she ended up making a mess on the floor in the bathroom. When the patient came in to discussed this with the aunt the aunt became angry with the patient and the patient eventually made a suicidal statement indicating she would injure herself. The aunt insisted the patient call 911 to go to the hospital. The patient did call 911 and when the commander police reserves arrived he did get the patient to make a statement regarding how she would kill herself if she tried and she indicated that she would cut herself, "like I always do" as a means to commit suicide. The patient is recently been released from longterm for violating a no contact order. She indicates she spent 41 months in longterm for violating a no contact order 5 times. She is now living with her aunt and uncle and a cousin in [place]. She does not feel the living situation is working out. She denies SI now. She has a past history of numerous prior cuttings. She did not cut on her self this evening. Review of Systems Constitutional: denies: Fever Eyes: denies: Decreased vision Ears: denies: Ear pain Nose: denies: Rhinorrhea / runny nose, Congestion Throat: denies: Sore throat Cardiac: denies: Chest pain / pressure, Palpitations Respiratory: denies: Dyspnea, Cough GI: reports: Diarrhea, Bloody / black stool. 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 : None HEENT: None Psych: Depression, Anxiety Musculoskeletal: None - Past Surgical History Past Surgical History: Yes HEENT: Tonsil/Adenoidectomy - Present Medications Home Medications: Ambulatory Orders Medication Instructions Recorded Confirmed Dicyclomine [Bentyl] 10 mg PO BID 10/22/19 12/07/19 Lamotrigine [Lamictal (Green)] 100 mg PO DAILY 10/22/19 12/07/19 OLANZapine [Zyprexa] 20 mg PO QPM 10/22/19 12/07/19 Pantoprazole [Protonix] 40 mg PO DAILY 10/22/19 12/07/19 busPIRone [Buspar] 10 mg PO BID 10/22/19 12/07/19 cloNIDine [Clonidine] 0.2 mg PO DAILY 10/22/19 12/07/19 Acyclovir [Zovirax] 400 mg PO BID 12/06/19 12/06/19 Amitriptyline [Elavil] 25 mg PO QPM 12/06/19 12/06/19 Docusate Sodium 250Mg Capsule 250 mg PO BID 12/06/19 12/06/19 [Colace 250Mg Capsule] Linaclotide [Linzess] 145 mcg PO DAILY 12/06/19 12/07/19 - Allergies Allergies/Adverse Reactions: Allergies Allergy/AdvReac Type Severity Reaction Status Date / Time latex Allergy Unknown Verified 12/06/19 23:37 Sulfa (Sulfonamide Allergy Unknown Verified 12/06/19 23:37 Antibiotics) - Social History Does the pt smoke?: Yes Smoking Status: Current every day smoker Does the pt drink ETOH?: Yes Does the pt have substance abuse?: No - Immunizations Immunizations are current?: Yes - POLST Patient has POLST: No PD ED PE NORMAL - Vitals Vital signs reviewed: Yes (tachy and hypertensive ) - General General: Alert and oriented X 3, No acute distress, Well developed/nourished - HEENT HEENT: Atraumatic, PERRL, EOMI, Other (freshly dyed hair bright red) - Neck Neck: Supple, no meningeal sign, No bony TTP - Cardiac Cardiac: RRR, No murmur - Respiratory Respiratory: No respiratory distress, Clear bilaterally - Abdomen Abdomen: Normal bowel sounds, Soft, Non tender, Non distended, No organomegaly - Back Back: No CVA TTP, No spinal TTP - Derm Derm: Normal color, Warm and dry, No rash - Extremities Extremities: No deformity, No edema, Other (There are multiple hesitation singh on the left forearm all well-healed and there are no new or recent scratches) - Neuro Neuro: Alert and oriented X 3, director of 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/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7 RDW 13.2 Plt Count 264 MPV 11.3 H Neut # (Auto) 8.6 H Lymph # (Auto) 3.6 H [place] # (Auto) 1.1 H Eos # (Auto) 0.0 Baso # (Auto) 0.1 Absolute Nucleated RBC 0.00 Nucleated RBC % 0.0 Sodium 137 Potassium 4.0 Chloride 106 Carbon Dioxide 23 Anion Gap 8.0 BUN 15 Creatinine 0.7 Estimated GFR (MDRD) 102 Glucose 97 Calcium 9.8 Total Bilirubin 0.4 AST 17 ALT 23 Alkaline Phosphatase 96 Total Protein 7.2 Albumin 4.3 Globulin 2.9 Albumin/Globulin Ratio 1.5 Lipase 28 Urine Color YELLOW Urine Clarity CLEAR Urine pH 6.5 Ur Specific [place] 1.025 Urine Protein NEGATIVE Urine Glucose (UA) NEGATIVE Urine Ketones NEGATIVE Urine Occult Blood NEGATIVE Urine Nitrite NEGATIVE Urine Bilirubin NEGATIVE Urine Urobilinogen 0.2 (NORMAL) Ur Leukocyte Esterase NEGATIVE Ur Microscopic Review NOT INDICATED Urine Culture Comments NOT INDICATED Salicylates < 6.0 Urine Opiates Screen NEGATIVE Ur Oxycodone Screen NEGATIVE Urine Methadone Screen NEGATIVE Ur Propoxyphene Screen NEGATIVE Acetaminophen < 10 L Ur Barbiturates Screen NEGATIVE Ur Tricyclics Screen POSITIVE H Ur Phencyclidine Scrn NEGATIVE Ur Amphetamine Screen NEGATIVE U Methamphetamines Scrn NEGATIVE U Benzodiazepines Scrn NEGATIVE Urine Cocaine Screen NEGATIVE U Cannabinoids Screen NEGATIVE Ethyl Alcohol < 5.0 PD MEDICAL DECISION MAKING - ED course Complexity details: reviewed results, re-evaluated patient, considered differential, d/w patient ED course: 24-year-old female making remarks indicating suicidal ideation no longer feels suicidal here in the emergency department. She has had a number of previous attempts at cutting she has had a prior drug overdose and I have asked the patient to wait for evaluation by the family welfare social work professor in the morning. She is now medically cleared for evaluation. At shift change her care is turned over to Dr. Sams.
--- NOTE | 2019-12-07 12:18 | ED Physician Documentation ---
ED Addendum - Addendum Addendum: 12/07/19 12:16 24-year-old female signed out by Dr. Graham awaiting social work evaluation. Patient denies feeling homicidal or suicidal. She does not plan to hurt herself. She spoke with social work and they developed a safety plan. She is comfortable going home at this time. She has resources to follow-up with. Patient counseled regarding signs and symptoms for which I believe and urgent re-evaluation would be necessary. Patient with good understanding of and agreement to plan and is comfortable going home at this time This document was made in part using voice recognition software. While efforts are made to proofread this document, sound alike and grammatical errors may occur. Departure - Departure Disposition: 01 Home, Self Care Clinical Impression: Depression Qualifiers: Depression Type: unspecified Qualified Code(s): F32.9 - Major depressive disorder, single episode, unspecified Condition: Good Instructions: ED Depression Follow-Up: Maxwell Doe SR, MD [Primary Care Provider] - Within 1 week Comments: Continue your medications at home. Follow-up with your doctor next week. Return if you worsen or have increasing thoughts of harming yourself. Crisis Line and is available to talk to someone [email or web address] is also available to chat with someone online if you prefer. There are also many resources on this website and apps for your phone to help with your mental health You can also text the word START to [phone] to chat with someome via text.
[2019-12-07] MEDS ORDERED: ACETAMINOPHEN 325 MG TABLET PO STA (12:22)
[2019-12-07 12:37] VITALS: BP 118/96
== END 2019-12-07 12:36 | disposition home or self-care (01) ==
LOC: EDUNIT# → ED 23:21
DX: F32.9 Major depressive disorder, single episode, unspecified (principal); F17.200 Nicotine dependence, unspecified, uncomplicated
CPT/HCPCS: 36415; 80053; 80306; 80307; 80320; 80329; 81003; 83690; 85025; 99283; A9270; 81001; 87086